=== PATIENT | female | born 1985 | race African-American/Black ===

== ENCOUNTER 2022-10-18 13:19 | Inpatient (IN) ==
[2022-10-18] MEDS ORDERED: SODIUM CHLORIDE 0.9% 1,000 ML IV STA ×2 (13:46→16:50)
[2022-10-18] MEDS ORDERED: ONDANSETRON 4 MG/2 ML VIAL IV STA (13:47)
[2022-10-18] MEDS ORDERED: HYDROmorphone 1 MG/1 ML SYRINGE IV STA ×2 (13:47→19:52)
[2022-10-18 14:23] LABS: Basophils # 0.1 10*3/uL (0.0-0.2); Basophils % 0.6 % (0.0-0.8); Eosinophils # 0.1 10*3/uL (0.0-0.87); Hematocrit 28.5 VOL% (35.7-47.0); Hemoglobin 8.3 GM/DL (12.0-16.0); Immature Granulocytes % 0.6 %; Immature Granulocytes Absolute 0.09 #; Mean Corpuscular HGB Conc 29.1 GM/DL (32-36); Mean Corpuscular Volume 72.5 FL (87-102); Mean Platelet Volume 9.2 FL (9.6-12.0); Monocytes # 0.9 10*3/uL (0.11-0.8); Monocytes % 6.3 % (1.7-12.7); Neutrophils % 77.5 % (38.7-73.9); Platelet Count 560 T/CUMM (130-400); Red Blood Count 3.93 MC/CUMM (3.8-5.5); Red Cell Distribution Width 18.7 % (9.3-17.3); White Blood Count 14.2 T/CUMM (4-12)
[2022-10-18 14:49] LABS: Alanine Aminotransferase 16 U/L (13-56); Albumin 2.6 G/DL (3.4-5.0); Alkaline Phosphatase 120 U/L (45-117); Aspartate Amino Transferase 7 U/L (0-37); Bilirubin,Total < 0.39 MG/DL (0.20-1.00); Blood Urea Nitrogen 6 MG/DL (7-18); Calcium 8.6 MG/DL (8.5-10.1); Carbon Dioxide 28 MMOL/L (21-32); Chloride 104 MMOL/L (98-107); Glucose 435 MG/DL (74-106); Osmolality,Calculated 289.8 MOS/KG (273-304); Potassium 3.7 MMOL/L (3.5-5.1); Sodium 137 MMOL/L (136-145); Total Protein 8.1 G/DL (6.4-8.2)
[2022-10-18] MEDS ORDERED: PIPERACILLIN/TAZOBACTAM 3,375 MG in SODIUM CHLORIDE 0.9% 100 ML IV STA (15:00)
[2022-10-18] MEDS ORDERED: INSULIN REGULAR 100 UNIT/ML IV STA (15:12)
[2022-10-18] MEDS ORDERED: ALUMINUM/MAGNES/SIMETH MAX STR 30 ML UDCUP PO PRN (16:48)
[2022-10-18] MEDS ORDERED: LACTULOSE 20 GM/30 ML UDCUP PO PRN (16:48)
[2022-10-18] MEDS ORDERED: CALCIUM CARBONATE CHEW 500 MG TABLET PO PRN (16:48)
[2022-10-18] MEDS ORDERED: GLUCAGON 1 MG VIAL IM PRN (16:48)
[2022-10-18] MEDS ORDERED: ONDANSETRON 4 MG/2 ML VIAL IV PRN (16:48)
[2022-10-18] MEDS ORDERED: DOCUSATE SODIUM 100 MG CAPSULE PO PRN (16:48)
[2022-10-18] MEDS ORDERED: SIMETHICONE CHEW 125 MG TABLET PO PRN (16:48)
[2022-10-18] MEDS ORDERED: DEXTROSE 10% 250 ML BAG IV PRN (16:56)
[2022-10-18] MEDS ORDERED: HYDROmorphone 1 MG/1 ML SYRINGE IV PRN ×2 (17:31→19:58)
[2022-10-18] MEDS ORDERED: predniSONE 20 MG TABLET PO ONE (17:42)
[2022-10-18] MEDS: VANCOMYCIN INJ 1,750 MG in SODIUM CHLORIDE 0.9% 500 ML IV SCH (18:00)
[2022-10-18] MEDS ORDERED: FERRIC GLUCONATE COMPLEX 125 MG in SODIUM CHLORIDE 0.9% 100 ML IV ONE (18:30)
[2022-10-18] MEDS: SODIUM CHLORIDE 0.9% 1,000 ML IV SCH (19:44)
[2022-10-18 20:03] LABS: Folate 4.41 NG/ML (5.38-24.0)
[2022-10-18 20:44] LABS: Mucus,Urine Occasional /LPF (Occasional); Squamous Epithelial Cell,Urine Few /HPF (0-10)
[2022-10-18 20:45] LABS: Bilirubin,Urine Negative (Negative); Blood, Urine Negative (Negative); Glucose,Urine (UA) 500 mg/dL (Negative); Ketones,Urine Negative (Negative); Nitrite,Urine Negative (Negative); Protein,Urine Negative (Negative); Urine Appearance Clear (Clear); Urine Color Yellow (Yellow); Urine Urobilinogen 0.2 eU/dL (<2.0); Urine pH 6.5 (4.5-8.0)
[2022-10-18] MEDS ORDERED: NON-FORMULARY MEDICATION (Metformin 1,000 mg Tablet) PO SCH (21:00)
[2022-10-18] MEDS ORDERED: predniSONE 20 MG TABLET PO SCH (21:00)
[2022-10-18] MEDS ORDERED: INSULIN GLARGINE 100 UNIT/ML SUBCUT SCH (21:00)
[2022-10-18] MEDS ORDERED: glipiZIDE 10 MG TABLET PO SCH (21:00)
[2022-10-18] MEDS ORDERED: ENOXAPARIN 40 MG/0.4 ML SYRINGE SUBCUT SCH (21:00)
[2022-10-18] MEDS: amLODIPine 10 MG TABLET PO SCH (22:00)
[2022-10-18] MEDS: INSULIN REGULAR 100 UNIT/ML SUBCUT SCH (22:00)
[2022-10-18] MEDS: oxyCODONE/ACETAMINOPHEN 5-325 MG TABLET PO SCH (22:00)
[2022-10-18] MEDS: PIPERACILLIN/TAZOBACTAM 3,375 MG in SODIUM CHLORIDE 0.9% 100 ML IV SCH (23:29)
[2022-10-19] MEDS: SODIUM CHLORIDE 0.9% 1,000 ML IV SCH ×3 (03:06→17:11)
[2022-10-19 04:01] LABS: Basophils # 0.1 10*3/uL (0.0-0.2); Basophils % 0.3 % (0.0-0.8); Hemoglobin 8.4 GM/DL (12.0-16.0); Immature Granulocytes % 1.1 %; Immature Granulocytes Absolute 0.19 #; Lymphocytes # 0.8 10*3/uL (1.4-4.0); Lymphocytes % 4.5 % (21.3-54.2); Mean Corpuscular HGB Conc 28.6 GM/DL (32-36); Mean Corpuscular Volume 73.7 FL (87-102); Mean Platelet Volume 9.1 FL (9.6-12.0); Monocytes # 0.2 10*3/uL (0.11-0.8); Monocytes % 1.2 % (1.7-12.7); Neutrophils % 92.9 % (38.7-73.9); Platelet Count 540 T/CUMM (130-400); Red Blood Count 3.99 MC/CUMM (3.8-5.5); Red Cell Distribution Width 18.7 % (9.3-17.3); White Blood Count 17.8 T/CUMM (4-12)
[2022-10-19 04:03] LABS: Hematocrit 29.4 VOL% (35.7-47.0)
[2022-10-19 04:19] LABS: Eosinophils 1 % (0-10); Hypochromia 1+; Lymphocytes 4 % (20-55); Microcytosis 1+; Platelet Estimate Increased; Total Cells Counted 100
[2022-10-19 04:37] LABS: Calcium 8.4 MG/DL (8.5-10.1); Potassium 4.1 MMOL/L (3.5-5.1); Risk Ratio 2.26; Thyroid Stimulating Hormone 0.29 uIU/ml (0.358-3.74); VLDL Cholesterol 12.2 MG/DL
[2022-10-19] MEDS: hydrALAZINE 20 MG/1 ML VIAL IV PRN (05:08)
[2022-10-19] MEDS: VANCOMYCIN INJ 1,750 MG in SODIUM CHLORIDE 0.9% 500 ML IV SCH ×2 (05:33→22:39)
[2022-10-19] MEDS: oxyCODONE/ACETAMINOPHEN 5-325 MG TABLET PO SCH (05:58)
[2022-10-19] MEDS ORDERED: SODIUM CHLORIDE 0.9% 250 ML IV ONE (08:50)
[2022-10-19 08:59] LABS: Free T4 (Free Thyroxine) 1.36 NG/DL (0.76-1.46)
[2022-10-19] MEDS ORDERED: amLODIPine 5 MG TABLET PO SCH (09:00)
[2022-10-19] MEDS: ATORVASTATIN 40 MG TABLET PO SCH (09:40)
[2022-10-19] MEDS: predniSONE 20 MG TABLET PO SCH (09:40)
[2022-10-19] MEDS: amLODIPine 10 MG TABLET PO SCH (09:40)
[2022-10-19] MEDS: RIVAROXABAN 20 MG TABLET PO SCH (09:40)
[2022-10-19] MEDS: PANTOPRAZOLE 40 MG TABLET PO SCH (09:40)
[2022-10-19] MEDS: PIPERACILLIN/TAZOBACTAM 3,375 MG in SODIUM CHLORIDE 0.9% 100 ML IV SCH ×2 (09:40→15:21)
[2022-10-19] MEDS: ASPIRIN EC 81 MG TABLET PO SCH (09:40)
[2022-10-19] MEDS: CLOPIDOGREL 75 MG TABLET PO SCH (09:40)
[2022-10-19] MEDS: FERROUS SULFATE 325 MG TABLET PO SCH (09:40)
[2022-10-19] MEDS: OMEGA 3 ACID ETHYL ESTERS 1 GM CAPSULE PO SCH ×2 (09:40→20:50)
[2022-10-19] MEDS: INSULIN REGULAR 100 UNIT/ML SUBCUT SCH ×5 (09:50→20:50)
[2022-10-19] MEDS ORDERED: NALOXONE 0.4 MG/ML VIAL IV PRN (09:57)
[2022-10-19] MEDS: CHOLECALCIFEROL 1,000 UNIT TABLET PO SCH (11:48)
[2022-10-19] MEDS: oxyCODONE ER 10 MG TABLET PO SCH ×2 (11:48→20:50)
[2022-10-19] MEDS: FOLIC ACID 1 MG TABLET PO SCH ×2 (11:48→20:50)
[2022-10-19] MEDS: KETOROLAC 30 MG/1 ML VIAL IV SCH ×3 (11:50→21:00)
[2022-10-19 12:36] LABS: Cyclic Citrull Peptide Interp Negative
[2022-10-19 12:59] LABS: Hepatitis B Surface Ag Quant < 0.10 Index; Hepatitis B Surface Ag Result Non-Reactive (NonReactive); Hepatitis C Virus Ab Quant 0.07 Index; Hepatitis C Virus Ab Result Non-Reactive (NonReactive)
[2022-10-19] MEDS: hydrALAZINE 25 MG TABLET PO SCH (20:50)
[2022-10-19] MEDS: INSULIN GLARGINE 100 UNIT/ML SUBCUT SCH (20:50)
[2022-10-19] MEDS ORDERED: CLOBETASOL 0.05% OINT 15 GM TUBE TOP SCH (21:00)
[2022-10-20] MEDS: PIPERACILLIN/TAZOBACTAM 3,375 MG in SODIUM CHLORIDE 0.9% 100 ML IV SCH ×4 (00:50→22:00)
[2022-10-20] MEDS: KETOROLAC 30 MG/1 ML VIAL IV SCH ×4 (03:30→21:30)
[2022-10-20] MEDS: SODIUM CHLORIDE 0.9% 1,000 ML IV SCH ×2 (03:30→13:25)
[2022-10-20 05:39] LABS: Basophils % 0.1 % (0.0-0.8); Eosinophils % 0.1 % (0.00-10.9); Mean Platelet Volume 9.2 FL (9.6-12.0)
[2022-10-20 05:43] LABS: Calcium 8.5 MG/DL (8.5-10.1); Potassium 3.3 MMOL/L (3.5-5.1)
[2022-10-20 05:47] LABS: Immature Granulocytes Absolute 0.18 #; Lymphocytes # 2.2 10*3/uL (1.4-4.0); Lymphocytes % 12.5 % (21.3-54.2); Mean Corpuscular HGB Conc 29.2 GM/DL (32-36); Mean Corpuscular Volume 72.5 FL (87-102); Neutrophils % 80.3 % (38.7-73.9); Platelet Count 514 T/CUMM (130-400); Red Blood Count 3.31 MC/CUMM (3.8-5.5); Red Cell Distribution Width 18.8 % (9.3-17.3); White Blood Count 17.4 T/CUMM (4-12)
[2022-10-20] MEDS ORDERED: SODIUM CHLORIDE 0.9% 1,000 ML IV PRN (06:25)
[2022-10-20] MEDS ORDERED: POTASSIUM CHLORIDE 20 MEQ TABLET PO ONE (07:26)
[2022-10-20] MEDS: oxyCODONE ER 10 MG TABLET PO SCH ×2 (08:38→20:30)
[2022-10-20] MEDS ORDERED: SILVER SULFADIAZINE 1% CREAM 400 GM JAR TOP ONE (08:56)
[2022-10-20] MEDS ORDERED: NON-FORMULARY MEDICATION (Losartan 100 mg Tablet) PO SCH (09:00)
[2022-10-20] MEDS ORDERED: VALSARTAN HYDROCHLOROTHIAZIDE PO SCH (09:00)
[2022-10-20] MEDS ORDERED: LOSARTAN 50 MG TABLET PO SCH (09:00)
[2022-10-20] MEDS: INSULIN REGULAR 100 UNIT/ML SUBCUT SCH ×4 (10:23→21:30)
[2022-10-20] MEDS: ASPIRIN EC 81 MG TABLET PO SCH (10:36)
[2022-10-20] MEDS: VALSARTAN 160 MG TABLET PO SCH (10:36)
[2022-10-20] MEDS: FOLIC ACID 1 MG TABLET PO SCH ×2 (10:36→20:30)
[2022-10-20] MEDS: RIVAROXABAN 20 MG TABLET PO SCH (10:36)
[2022-10-20] MEDS: FERROUS SULFATE 325 MG TABLET PO SCH (10:36)
[2022-10-20] MEDS: predniSONE 20 MG TABLET PO SCH (10:36)
[2022-10-20] MEDS: OMEGA 3 ACID ETHYL ESTERS 1 GM CAPSULE PO SCH ×2 (10:36→20:30)
[2022-10-20] MEDS: amLODIPine 10 MG TABLET PO SCH (10:36)
[2022-10-20] MEDS: ATORVASTATIN 40 MG TABLET PO SCH (10:37)
[2022-10-20] MEDS: CHOLECALCIFEROL 1,000 UNIT TABLET PO SCH (10:37)
[2022-10-20] MEDS: CLOPIDOGREL 75 MG TABLET PO SCH (10:37)
[2022-10-20] MEDS: hydrALAZINE 25 MG TABLET PO SCH ×2 (10:37→20:30)
[2022-10-20] MEDS: PANTOPRAZOLE 40 MG TABLET PO SCH (10:44)
[2022-10-20] MEDS: SILVER SULFADIAZINE 1% CREAM 25 GM TUBE TOP SCH (10:45)
[2022-10-20] MEDS: VANCOMYCIN INJ 1,750 MG in SODIUM CHLORIDE 0.9% 500 ML IV SCH ×2 (10:51→20:30)
[2022-10-20] MEDS: TACROLIMUS 0.1% TOP SCH (10:52)
[2022-10-20] MEDS: IMMUNE GLOBULIN 10% 40 GM, IMMUNE GLOBULIN 10% 5 GM in PREMIX 1 EACH IV SCH (15:33)
[2022-10-20 17:13] LABS: Antinuclear Ab, S 0.5 U
[2022-10-20] MEDS: DOCUSATE SODIUM 100 MG CAPSULE PO SCH (20:30)
[2022-10-20] MEDS: INSULIN GLARGINE 100 UNIT/ML SUBCUT SCH (21:30)
[2022-10-21] MEDS: oxyCODONE/ACETAMINOPHEN 5-325 MG TABLET PO PRN ×2 (03:45→09:17)
[2022-10-21] MEDS: KETOROLAC 30 MG/1 ML VIAL IV SCH ×4 (03:45→22:45)
[2022-10-21 06:04] LABS: Calcium 8.7 MG/DL (8.5-10.1); Osmolality,Calculated 277.4 MOS/KG (273-304); Potassium 3.7 MMOL/L (3.5-5.1)
[2022-10-21] MEDS: PIPERACILLIN/TAZOBACTAM 3,375 MG in SODIUM CHLORIDE 0.9% 100 ML IV SCH ×2 (06:05→22:45)
[2022-10-21 06:19] LABS: Basophils # 0.1 10*3/uL (0.0-0.2); Basophils % 0.3 % (0.0-0.8); Eosinophils % 0.1 % (0.00-10.9); Hematocrit 31.5 VOL% (35.7-47.0); Hemoglobin 9.2 GM/DL (12.0-16.0); Immature Granulocytes % 1.4 %; Immature Granulocytes Absolute 0.21 #; Lymphocytes # 2.2 10*3/uL (1.4-4.0); Lymphocytes % 14.9 % (21.3-54.2); Mean Corpuscular HGB Conc 29.2 GM/DL (32-36); Mean Platelet Volume 9.9 FL (9.6-12.0); Monocytes % 6.8 % (1.7-12.7); Neutrophils % 76.5 % (38.7-73.9); Platelet Count 452 T/CUMM (130-400); Red Blood Count 4.09 MC/CUMM (3.8-5.5); Red Cell Distribution Width 19.5 % (9.3-17.3); White Blood Count 14.5 T/CUMM (4-12)
[2022-10-21] MEDS: INSULIN REGULAR 100 UNIT/ML SUBCUT SCH ×4 (07:56→20:45)
[2022-10-21] MEDS: VANCOMYCIN INJ 1,750 MG in SODIUM CHLORIDE 0.9% 500 ML IV SCH ×2 (09:11→20:45)
[2022-10-21] MEDS: FERROUS SULFATE 325 MG TABLET PO SCH ×2 (09:17→20:45)
[2022-10-21] MEDS: CLOPIDOGREL 75 MG TABLET PO SCH (09:17)
[2022-10-21] MEDS: TACROLIMUS 0.1% TOP SCH (09:17)
[2022-10-21] MEDS: DOCUSATE SODIUM 100 MG CAPSULE PO SCH ×2 (09:17→20:45)
[2022-10-21] MEDS: ASPIRIN EC 81 MG TABLET PO SCH (09:18)
[2022-10-21] MEDS: amLODIPine 10 MG TABLET PO SCH (09:18)
[2022-10-21] MEDS: RIVAROXABAN 20 MG TABLET PO SCH (09:18)
[2022-10-21] MEDS: VALSARTAN 160 MG TABLET PO SCH (09:18)
[2022-10-21] MEDS: FOLIC ACID 1 MG TABLET PO SCH ×2 (09:18→20:45)
[2022-10-21] MEDS: CHOLECALCIFEROL 1,000 UNIT TABLET PO SCH (09:18)
[2022-10-21] MEDS: ATORVASTATIN 40 MG TABLET PO SCH (09:19)
[2022-10-21] MEDS: PANTOPRAZOLE 40 MG TABLET PO SCH (09:20)
[2022-10-21] MEDS: POLYETHYLENE GLYCOL POWDER 17 GM PACK PO SCH (09:21)
[2022-10-21] MEDS: SILVER SULFADIAZINE 1% CREAM 25 GM TUBE TOP SCH (09:24)
[2022-10-21] MEDS: OMEGA 3 ACID ETHYL ESTERS 1 GM CAPSULE PO SCH ×2 (09:29→20:45)
[2022-10-21] MEDS: predniSONE 20 MG TABLET PO SCH (09:29)
[2022-10-21] MEDS: oxyCODONE ER 10 MG TABLET PO SCH ×2 (09:32→20:45)
[2022-10-21 10:35] LABS: Total Protein 8.3 G/DL (6.4-8.2)
[2022-10-21 10:39] LABS: Cancer Antigen 19-9 33.62 U/ML (0-35); Carcinoembryonic Antigen < 0.50 NG/ML (0.0-5.0)
[2022-10-21] MEDS: IMMUNE GLOBULIN 10% 40 GM, IMMUNE GLOBULIN 10% 5 GM in PREMIX 1 EACH IV SCH (11:22)
[2022-10-21] MEDS: SODIUM CHLORIDE 0.9% 1,000 ML IV SCH (17:20)
[2022-10-21] MEDS: INSULIN GLARGINE 100 UNIT/ML SUBCUT SCH (20:45)
[2022-10-22] MEDS: KETOROLAC 30 MG/1 ML VIAL IV SCH (03:00)
[2022-10-22] MEDS: oxyCODONE/ACETAMINOPHEN 5-325 MG TABLET PO PRN ×2 (03:00→12:22)
[2022-10-22] MEDS: PIPERACILLIN/TAZOBACTAM 3,375 MG in SODIUM CHLORIDE 0.9% 100 ML IV SCH ×3 (05:10→21:45)
[2022-10-22 07:52] LABS: Basophils % 0.2 % (0.0-0.8); Eosinophils % 0.2 % (0.00-10.9); Hematocrit 27.9 VOL% (35.7-47.0); Hemoglobin 8.3 GM/DL (12.0-16.0); Immature Granulocytes % 0.8 %; Lymphocytes # 2.3 10*3/uL (1.4-4.0); Lymphocytes % 17.7 % (21.3-54.2); Mean Corpuscular HGB Conc 29.7 GM/DL (32-36); Mean Corpuscular Volume 74.4 FL (87-102); Mean Platelet Volume 8.6 FL (9.6-12.0); Monocytes # 0.9 10*3/uL (0.11-0.8); Monocytes % 6.7 % (1.7-12.7); Neutrophils % 74.4 % (38.7-73.9); Platelet Count 463 T/CUMM (130-400); Red Blood Count 3.75 MC/CUMM (3.8-5.5); White Blood Count 12.9 T/CUMM (4-12)
[2022-10-22 08:21] LABS: Alanine Aminotransferase 12 U/L (13-56); Albumin 2.5 G/DL (3.4-5.0); Alkaline Phosphatase 81 U/L (45-117); Aspartate Amino Transferase 6 U/L (0-37); Bilirubin,Total < 0.39 MG/DL (0.20-1.00); Blood Urea Nitrogen 9 MG/DL (7-18); Calcium 8.4 MG/DL (8.5-10.1); Carbon Dioxide 26 MMOL/L (21-32); Chloride 109 MMOL/L (98-107); Glucose 173 MG/DL (74-106); Osmolality,Calculated 279.5 MOS/KG (273-304); Potassium 3.2 MMOL/L (3.5-5.1); Sodium 139 MMOL/L (136-145); Total Protein 7.6 G/DL (6.4-8.2)
[2022-10-22] MEDS ORDERED: POTASSIUM CHLORIDE 20 MEQ TABLET PO ONE (08:36)
[2022-10-22] MEDS: predniSONE 20 MG TABLET PO SCH (09:13)
[2022-10-22] MEDS: CHOLECALCIFEROL 1,000 UNIT TABLET PO SCH (09:14)
[2022-10-22] MEDS: VALSARTAN 160 MG TABLET PO SCH (09:14)
[2022-10-22] MEDS: VERAPAMIL SR 120 MG TABLET PO SCH ×2 (09:15→20:35)
[2022-10-22] MEDS: OMEGA 3 ACID ETHYL ESTERS 1 GM CAPSULE PO SCH ×2 (09:15→20:35)
[2022-10-22] MEDS: amLODIPine 10 MG TABLET PO SCH (09:17)
[2022-10-22] MEDS: ATORVASTATIN 40 MG TABLET PO SCH (09:17)
[2022-10-22] MEDS: ASPIRIN EC 81 MG TABLET PO SCH (09:17)
[2022-10-22] MEDS: RIVAROXABAN 20 MG TABLET PO SCH (09:17)
[2022-10-22] MEDS: CLOPIDOGREL 75 MG TABLET PO SCH (09:17)
[2022-10-22] MEDS: FOLIC ACID 1 MG TABLET PO SCH ×2 (09:17→20:35)
[2022-10-22] MEDS: oxyCODONE ER 10 MG TABLET PO SCH ×2 (09:17→20:35)
[2022-10-22] MEDS: FERROUS SULFATE 325 MG TABLET PO SCH ×2 (09:17→20:35)
[2022-10-22] MEDS: PANTOPRAZOLE 40 MG TABLET PO SCH (09:17)
[2022-10-22] MEDS: POLYETHYLENE GLYCOL POWDER 17 GM PACK PO SCH (09:21)
[2022-10-22] MEDS: DOCUSATE SODIUM 100 MG CAPSULE PO SCH ×2 (09:21→20:35)
[2022-10-22] MEDS: INSULIN REGULAR 100 UNIT/ML SUBCUT SCH ×4 (09:23→20:35)
[2022-10-22] MEDS: VANCOMYCIN INJ 1,750 MG in SODIUM CHLORIDE 0.9% 500 ML IV SCH ×2 (09:30→19:45)
[2022-10-22] MEDS: IMMUNE GLOBULIN 10% 40 GM, IMMUNE GLOBULIN 10% 5 GM in PREMIX 1 EACH IV SCH (10:48)
[2022-10-22] MEDS: TRIAMTERENE/HCTZ 37.5-25 MG CAPSULE PO SCH (10:48)
[2022-10-22] MEDS: SILVER SULFADIAZINE 1% CREAM 25 GM TUBE TOP SCH (11:18)
[2022-10-22] MEDS: TACROLIMUS 0.1% TOP SCH (11:18)
[2022-10-22] MEDS: hydrALAZINE 20 MG/1 ML VIAL IV PRN (14:10)
[2022-10-22] MEDS: INSULIN GLARGINE 100 UNIT/ML SUBCUT SCH (20:35)
[2022-10-22] MEDS: HYDROmorphone 1 MG/1 ML SYRINGE IV PRN (20:35)
[2022-10-23] MEDS: oxyCODONE/ACETAMINOPHEN 5-325 MG TABLET PO PRN ×2 (05:35→16:01)
[2022-10-23] MEDS: PIPERACILLIN/TAZOBACTAM 3,375 MG in SODIUM CHLORIDE 0.9% 100 ML IV SCH ×2 (05:35→20:07)
[2022-10-23] MEDS: hydrALAZINE 20 MG/1 ML VIAL IV PRN (05:35)
[2022-10-23 05:39] LABS: Basophils % 0.1 % (0.0-0.8); Eosinophils % 0.1 % (0.00-10.9); Hematocrit 32.1 VOL% (35.7-47.0); Hemoglobin 9.6 GM/DL (12.0-16.0); Immature Granulocytes % 0.8 %; Immature Granulocytes Absolute 0.12 #; Lymphocytes # 2.3 10*3/uL (1.4-4.0); Lymphocytes % 15.3 % (21.3-54.2); Mean Corpuscular HGB Conc 29.9 GM/DL (32-36); Mean Corpuscular Volume 74.8 FL (87-102); Mean Platelet Volume 8.8 FL (9.6-12.0); Monocytes % 6.9 % (1.7-12.7); Neutrophils % 76.8 % (38.7-73.9); Platelet Count 618 T/CUMM (130-400); Red Blood Count 4.29 MC/CUMM (3.8-5.5); Red Cell Distribution Width 20.8 % (9.3-17.3); White Blood Count 14.8 T/CUMM (4-12)
[2022-10-23 06:07] LABS: Alanine Aminotransferase 14 U/L (13-56); Albumin 2.6 G/DL (3.4-5.0); Alkaline Phosphatase 83 U/L (45-117); Aspartate Amino Transferase 9 U/L (0-37); Bilirubin,Total < 0.39 MG/DL (0.20-1.00); Blood Urea Nitrogen 10 MG/DL (7-18); Calcium 9.2 MG/DL (8.5-10.1); Carbon Dioxide 24 MMOL/L (21-32); Chloride 106 MMOL/L (98-107); Glucose 100 MG/DL (74-106); Osmolality,Calculated 271.8 MOS/KG (273-304); Potassium 3.5 MMOL/L (3.5-5.1); Sodium 137 MMOL/L (136-145); Total Protein 9.2 G/DL (6.4-8.2)
[2022-10-23] MEDS: oxyCODONE ER 10 MG TABLET PO SCH ×2 (08:41→22:32)
[2022-10-23] MEDS: ASPIRIN EC 81 MG TABLET PO SCH (08:42)
[2022-10-23] MEDS: INSULIN REGULAR 100 UNIT/ML SUBCUT SCH ×4 (08:42→22:31)
[2022-10-23] MEDS: predniSONE 20 MG TABLET PO SCH (08:42)
[2022-10-23] MEDS: FOLIC ACID 1 MG TABLET PO SCH ×2 (08:42→22:31)
[2022-10-23] MEDS: FERROUS SULFATE 325 MG TABLET PO SCH ×2 (08:42→22:32)
[2022-10-23] MEDS: ATORVASTATIN 40 MG TABLET PO SCH (08:42)
[2022-10-23] MEDS: OMEGA 3 ACID ETHYL ESTERS 1 GM CAPSULE PO SCH ×2 (08:43→22:32)
[2022-10-23] MEDS: PANTOPRAZOLE 40 MG TABLET PO SCH (08:43)
[2022-10-23] MEDS: VALSARTAN 160 MG TABLET PO SCH (08:43)
[2022-10-23] MEDS: VERAPAMIL SR 120 MG TABLET PO SCH ×2 (08:43→22:31)
[2022-10-23] MEDS: TRIAMTERENE/HCTZ 37.5-25 MG CAPSULE PO SCH (08:43)
[2022-10-23] MEDS: CLOPIDOGREL 75 MG TABLET PO SCH (08:43)
[2022-10-23] MEDS: CHOLECALCIFEROL 1,000 UNIT TABLET PO SCH (08:44)
[2022-10-23] MEDS: amLODIPine 10 MG TABLET PO SCH (08:44)
[2022-10-23] MEDS: VANCOMYCIN INJ 1,750 MG in SODIUM CHLORIDE 0.9% 500 ML IV SCH ×2 (08:45→22:37)
[2022-10-23] MEDS: POLYETHYLENE GLYCOL POWDER 17 GM PACK PO SCH (08:55)
[2022-10-23] MEDS: DOCUSATE SODIUM 100 MG CAPSULE PO SCH ×2 (08:55→22:32)
[2022-10-23] MEDS: TACROLIMUS 0.1% TOP SCH (09:01)
[2022-10-23] MEDS: SILVER SULFADIAZINE 1% CREAM 25 GM TUBE TOP SCH (09:01)
[2022-10-23] MEDS: RIVAROXABAN 20 MG TABLET PO SCH (09:10)
[2022-10-23 13:31] LABS: Breast Carcinoma Ag(CA 27.29) 22.8 U/mL (<=38.0)
[2022-10-23] MEDS: IMMUNE GLOBULIN 10% 40 GM, IMMUNE GLOBULIN 10% 5 GM in PREMIX 1 EACH IV SCH (13:36)
[2022-10-23] MEDS: HYDROmorphone 1 MG/1 ML SYRINGE IV PRN (20:02)
[2022-10-23] MEDS: INSULIN GLARGINE 100 UNIT/ML SUBCUT SCH (22:33)
[2022-10-24] MEDS: oxyCODONE/ACETAMINOPHEN 5-325 MG TABLET PO PRN ×2 (02:06→11:49)
[2022-10-24] MEDS: PIPERACILLIN/TAZOBACTAM 3,375 MG in SODIUM CHLORIDE 0.9% 100 ML IV SCH ×3 (04:21→22:27)
[2022-10-24 06:34] LABS: Immunoglobulin A (Chem) 328 MG/DL (70-400); Immunoglobulin G (Chem) 2580 MG/DL (700-1600); Immunoglobulin M (Chem) 36 MG/DL (40-230); Random Urine Protein (Bench) 24 MG/DL (<11.9); Total Protein (Chem) 8.3 G/DL (6.4-8.3)
[2022-10-24 08:03] LABS: Basophils % 0.1 % (0.0-0.8); Eosinophils % 0.2 % (0.00-10.9); Hematocrit 31.4 VOL% (35.7-47.0); Hemoglobin 9.5 GM/DL (12.0-16.0); Immature Granulocytes % 0.9 %; Immature Granulocytes Absolute 0.15 #; Lymphocytes # 2.5 10*3/uL (1.4-4.0); Mean Corpuscular HGB Conc 30.3 GM/DL (32-36); Mean Corpuscular Volume 74.2 FL (87-102); Mean Platelet Volume 8.8 FL (9.6-12.0); Monocytes # 1.1 10*3/uL (0.11-0.8); Monocytes % 6.6 % (1.7-12.7); Neutrophils % 77.2 % (38.7-73.9); Platelet Count 569 T/CUMM (130-400); Red Blood Count 4.23 MC/CUMM (3.8-5.5); Red Cell Distribution Width 21.2 % (9.3-17.3); White Blood Count 16.4 T/CUMM (4-12)
[2022-10-24] MEDS: INSULIN REGULAR 100 UNIT/ML SUBCUT SCH ×4 (08:22→22:28)
[2022-10-24] MEDS: CLOPIDOGREL 75 MG TABLET PO SCH (08:23)
[2022-10-24] MEDS: RIVAROXABAN 20 MG TABLET PO SCH (08:24)
[2022-10-24 08:29] LABS: Alanine Aminotransferase 14 U/L (13-56); Albumin 2.6 G/DL (3.4-5.0); Alkaline Phosphatase 76 U/L (45-117); Aspartate Amino Transferase 4 U/L (0-37); Bilirubin,Total < 0.39 MG/DL (0.20-1.00); Blood Urea Nitrogen 15 MG/DL (7-18); Calcium 9.1 MG/DL (8.5-10.1); Carbon Dioxide 26 MMOL/L (21-32); Chloride 106 MMOL/L (98-107); Glucose 86 MG/DL (74-106); Osmolality,Calculated 276.5 MOS/KG (273-304); Potassium 3.2 MMOL/L (3.5-5.1); Sodium 139 MMOL/L (136-145); Total Protein 9.2 G/DL (6.4-8.2)
[2022-10-24 08:55] LABS: Albumin (SPE) 3.6 G/DL (3.2-5.3); Albumin (SPE) Rel % 43.3 %; Alpha 1 (SPE) 0.3 G/DL (0.1-0.4); Alpha 1 (SPE) Rel % 3.5 %; Alpha 2 (SPE) 0.9 G/DL (0.4-1.0); Alpha 2 (SPE) Rel % 10.6 %; Beta (SPE) 0.9 G/DL (0.5-1.1); Gamma (SPE) 2.6 G/DL (0.7-1.7); Gamma (SPE) Rel % 31.6 %
[2022-10-24 09:33] LABS: INR 0.9; PT Patient Result 10.5 SECS (10.1-12.1)
[2022-10-24] MEDS ORDERED: DIAZEPAM 5 MG TABLET PO ONE (10:07)
[2022-10-24] MEDS: VANCOMYCIN INJ 1,750 MG in SODIUM CHLORIDE 0.9% 500 ML IV SCH (10:19)
[2022-10-24] MEDS: oxyCODONE ER 10 MG TABLET PO SCH ×2 (10:29→22:28)
[2022-10-24] MEDS: DOCUSATE SODIUM 100 MG CAPSULE PO SCH ×2 (11:44→22:29)
[2022-10-24] MEDS: predniSONE 20 MG TABLET PO SCH (11:45)
[2022-10-24] MEDS: METOPROLOL TARTRATE 25 MG TABLET PO SCH ×2 (11:45→22:28)
[2022-10-24] MEDS: ASPIRIN EC 81 MG TABLET PO SCH (11:45)
[2022-10-24] MEDS: PANTOPRAZOLE 40 MG TABLET PO SCH (11:45)
[2022-10-24] MEDS: amLODIPine 10 MG TABLET PO SCH (11:45)
[2022-10-24] MEDS: ATORVASTATIN 40 MG TABLET PO SCH (11:45)
[2022-10-24] MEDS: TRIAMTERENE/HCTZ 37.5-25 MG CAPSULE PO SCH (11:45)
[2022-10-24] MEDS: VALSARTAN 160 MG TABLET PO SCH (11:45)
[2022-10-24] MEDS: FOLIC ACID 1 MG TABLET PO SCH ×2 (11:45→22:29)
[2022-10-24] MEDS: IMMUNE GLOBULIN 10% 40 GM, IMMUNE GLOBULIN 10% 5 GM in PREMIX 1 EACH IV SCH (11:46)
[2022-10-24] MEDS: OMEGA 3 ACID ETHYL ESTERS 1 GM CAPSULE PO SCH ×2 (11:46→22:28)
[2022-10-24] MEDS: VERAPAMIL SR 120 MG TABLET PO SCH ×2 (11:46→22:29)
[2022-10-24] MEDS: FERROUS SULFATE 325 MG TABLET PO SCH ×2 (11:46→22:28)
[2022-10-24] MEDS: CHOLECALCIFEROL 1,000 UNIT TABLET PO SCH (11:46)
[2022-10-24] MEDS: POLYETHYLENE GLYCOL POWDER 17 GM PACK PO SCH (11:52)
[2022-10-24] MEDS: SILVER SULFADIAZINE 1% CREAM 25 GM TUBE TOP SCH (11:53)
[2022-10-24] MEDS: SODIUM CHLORIDE 0.45% 1,000 ML IV SCH (12:11)
[2022-10-24 12:40] LABS: Kappa Free Light Chain 3.66 mg/dL; Lambda Free Light Chain 1.94 mg/dL
[2022-10-24] MEDS: TACROLIMUS 0.1% TOP SCH (13:20)
[2022-10-24] MEDS ORDERED: POTASSIUM CHLORIDE 20 MEQ TABLET PO ONE (15:01)
[2022-10-24] MEDS: INSULIN GLARGINE 100 UNIT/ML SUBCUT SCH (22:30)
[2022-10-25] MEDS: PIPERACILLIN/TAZOBACTAM 3,375 MG in SODIUM CHLORIDE 0.9% 100 ML IV SCH (04:00)
[2022-10-25 04:27] LABS: Basophils % 0.1 % (0.0-0.8); Hematocrit 33.7 VOL% (35.7-47.0); Hemoglobin 10.1 GM/DL (12.0-16.0); Immature Granulocytes % 0.5 %; Immature Granulocytes Absolute 0.09 #; Lymphocytes # 1.5 10*3/uL (1.4-4.0); Lymphocytes % 9.1 % (21.3-54.2); Mean Corpuscular Volume 74.9 FL (87-102); Mean Platelet Volume 8.8 FL (9.6-12.0); Monocytes % 6.2 % (1.7-12.7); Neutrophils % 84.1 % (38.7-73.9); Platelet Count 561 T/CUMM (130-400); Red Cell Distribution Width 21.3 % (9.3-17.3); White Blood Count 16.5 T/CUMM (4-12)
[2022-10-25 04:47] LABS: Alanine Aminotransferase 15 U/L (13-56); Albumin 2.6 G/DL (3.4-5.0); Alkaline Phosphatase 73 U/L (45-117); Aspartate Amino Transferase 8 U/L (0-37); Bilirubin,Total < 0.39 MG/DL (0.20-1.00); Blood Urea Nitrogen 17 MG/DL (7-18); Calcium 8.8 MG/DL (8.5-10.1); Carbon Dioxide 24 MMOL/L (21-32); Chloride 107 MMOL/L (98-107); Glucose 127 MG/DL (74-106); Potassium 3.8 MMOL/L (3.5-5.1); Sodium 136 MMOL/L (136-145); Total Protein 9.6 G/DL (6.4-8.2)
[2022-10-25] MEDS: oxyCODONE/ACETAMINOPHEN 5-325 MG TABLET PO PRN (05:27)
[2022-10-25] MEDS: INSULIN REGULAR 100 UNIT/ML SUBCUT SCH ×2 (07:33→12:10)
[2022-10-25] MEDS: ASPIRIN EC 81 MG TABLET PO SCH (09:58)
[2022-10-25] MEDS: TRIAMTERENE/HCTZ 37.5-25 MG CAPSULE PO SCH (09:58)
[2022-10-25] MEDS: VALSARTAN 160 MG TABLET PO SCH (09:58)
[2022-10-25] MEDS: amLODIPine 10 MG TABLET PO SCH (09:58)
[2022-10-25] MEDS: PANTOPRAZOLE 40 MG TABLET PO SCH (09:59)
[2022-10-25] MEDS: DOCUSATE SODIUM 100 MG CAPSULE PO SCH (09:59)
[2022-10-25] MEDS: FOLIC ACID 1 MG TABLET PO SCH (09:59)
[2022-10-25] MEDS: ATORVASTATIN 40 MG TABLET PO SCH (09:59)
[2022-10-25] MEDS: FERROUS SULFATE 325 MG TABLET PO SCH (09:59)
[2022-10-25] MEDS: OMEGA 3 ACID ETHYL ESTERS 1 GM CAPSULE PO SCH (09:59)
[2022-10-25] MEDS: METOPROLOL TARTRATE 25 MG TABLET PO SCH (09:59)
[2022-10-25] MEDS: CLOPIDOGREL 75 MG TABLET PO SCH (09:59)
[2022-10-25] MEDS: RIVAROXABAN 20 MG TABLET PO SCH (09:59)
[2022-10-25] MEDS: CHOLECALCIFEROL 1,000 UNIT TABLET PO SCH (09:59)
[2022-10-25] MEDS: VERAPAMIL SR 120 MG TABLET PO SCH (09:59)
[2022-10-25] MEDS: predniSONE 20 MG TABLET PO SCH (09:59)
[2022-10-25] MEDS: oxyCODONE ER 10 MG TABLET PO SCH (10:00)
[2022-10-25] MEDS: TACROLIMUS 0.1% TOP SCH (10:03)
[2022-10-25] MEDS: SILVER SULFADIAZINE 1% CREAM 25 GM TUBE TOP SCH (10:03)
[2022-10-25] MEDS: POLYETHYLENE GLYCOL POWDER 17 GM PACK PO SCH (10:04)
[2022-10-25] MEDS: SODIUM CHLORIDE 0.45% 1,000 ML IV SCH (11:44)
[2022-10-25 12:11] VITALS: BP 188/95
[2022-10-25 14:27] LABS: HLA-B27 Result Negative
== END 2022-10-25 13:00 | disposition home or self-care (01) | DRG 478 ==
LOC: N.ED 13:19 → SUATTDRO 16:48 → N.EDINP 16:48 → N.TELEN 10-19 11:26
PROVIDERS: ADMIT Family Medicine; ATTEND Internal Medicine